=== PATIENT | male | born 1990 | race Caucasian/White ===

== ENCOUNTER 2023-10-31 07:53 | Emergency (ER) | payer BC | END 2023-10-31 09:05 | disposition home or self-care (01) | LOC: MADERS 07:53 | DX: H65.92 Unspecified nonsuppurative otitis media, left ear (principal); H73.92 Unspecified disorder of tympanic membrane, left ear; J01.00 Acute maxillary sinusitis, unspecified | CPT/HCPCS: 99283 ==